=== PATIENT | female | born 1950 | race Caucasian/White ===

== ENCOUNTER 2023-11-21 12:32 | Emergency (ER) | payer MEDICARE, OTHER, SELFPAY ==
--- NOTE | 2023-11-21 12:42 | ED.FEMALEGU ---
HPI - Female Genitourinary General Chief complaint: Urogenital-Female Stated complaint: Uti Symptoms Time Seen by Provider: 11/21/23 12:34 Source: patient Mode of arrival: ambulatory Limitations: no limitations History of Present Illness HPI Narrative: Kellen is a 73-year-old female patient presenting to the clinic today with complaints of possible UTI the started over the past few days. She reports that she has some blood in her urine this morning also noticing some burning with urination and urinary frequency with decreased urine output. Denies any fever or chills. She also would like her ears to be looked at if she is having pain and pressure. Related Data Home Medications Medication Instructions Recorded Confirmed diltiazem HCl 240 mg mg PO 11/21/23 capsule,extended release 24 hr fluticasone propionate 50 intranasal 11/21/23 mcg/actuation nasal spray,suspension latanoprost 0.005 % eye drops drp 11/21/23 losartan 100 tablet 11/21/23 mg-hydrochlorothiazide 25 mg tablet metformin 1,000 mg tablet 1,000 mg PO DAILY 11/21/23 11/21/23 metformin 1,000 mg tablet 500 mg PO HS 11/21/23 11/21/23 rosuvastatin 10 mg tablet mg 11/21/23 semaglutide 1 mg/dose (4 mg/3 mL) mg subcut 11/21/23 subcutaneous pen injector (Ozempic) Allergies Allergy/AdvReac Type Severity Reaction Status Date / Time No Known Allergies Allergy Verified 11/21/23 12:46 Review of Systems Review of Systems: Pertinent positives per HPI. Patient denies any fever, chills, rash, headache, visual changes, dizziness, cough, runny nose, sore throat, shortness of breath, chest pain, palpitations, nausea, vomiting, diarrhea, constipation, abdominal pain. PMFSH Comments At the time of my signature, I reviewed and agree with the nursing past medical, surgical, social, and family history. There is no relevant family history pertinent to the patient complaint. Exam Narrative: General: Well-developed, well nourished, in no apparent distress Head: Normocephalic, atraumatic Eyes: Pupils equally round and reactive to light bilaterally, EOM intact, sclera and conjunctive clear, no discharge, lids normal Ears: TMs intact, congestion, mild bulging, ear canals clear, no drainage, grossly hearing normal. Nose: Nares patent, no discharge, no inflammation, no sinus tenderness. Mouth: Oropharynx without lesions or masses, good dentition, MMM. Neck: Supple, trachea midline, no enlargement of anterior or posterior cervical nodes, no thyroid masses or goiter palpable. Cardio: Regular rate and rhythm, s1 and s2 normal, no murmur appreciated. Resp: Clear to auscultation bilaterally anteriorly and posteriorly, no rhonchi, rales, wheezing or rubs Abdomen: Soft, pliable, bowel sounds present in all quadrants, non-tender to palpation, no organomegly, no CVAT tenderness. Course Course Emergency Course: Portions of this record may have been created with voice recognition software. Level of Care: Express Care Visit Vital Signs Vital signs: Vital Signs Temperature 36.1 C L 11/21/23 12:43 Pulse Rate 78 11/21/23 12:43 Respiratory Rate 16 11/21/23 12:43 Blood Pressure 147/68 H 11/21/23 12:43 Pulse Oximetry 98 11/21/23 12:43 Oxygen Delivery Room Air 11/21/23 12:43 Temperature 36.1 C L 11/21/23 12:43 Pulse Rate 78 11/21/23 12:43 Respiratory Rate 16 11/21/23 12:43 Blood Pressure 147/68 H 11/21/23 12:43 Pulse Oximetry 98 11/21/23 12:43 Oxygen Delivery Room Air 11/21/23 12:43 Vital signs reviewed MDM - Female Genitourinary MDM Narrative Medical decision making narrative: At the time of visit patient is resting comfortably on the exam table. Patient appears to be nontoxic. Labs: UA positive for 1+ leukocyte, 3+ blood, 1+ protein. We will send urine for culture. Plan: I suspect patient has acute cystitis eustachian tube dysfunction. Will send in prescription for ciprofloxacin. Supportive measures wer
[2023-11-21 12:43] VITALS: BP 147/68; PULSE 78; RESP 16; TEMP 36.1; O2SAT 98
[2023-11-21 13:10] LABS: EDUAAPPEAR Cloudy; EDUABILI Negative (Negative); EDUABLOOD 3+ (Negative); EDUACOLOR1 Yellow; EDUAGLUCOSE Negative (Negative); EDUAKETONE Negative (Negative); EDUALEUKO 1+ (Negative); EDUANITRATE Negative (Negative); EDUAPH 7.5; EDUAPROTEIN 1+ (Negative); EDUAUROBILI 0.2
== END 2023-11-21 13:22 | disposition home or self-care (01) ==
PROVIDERS: Emergency Provider Nurse Practitioner Family
DX: N30.01 Acute cystitis with hematuria (principal); H69.93 Unspecified Eustachian tube disorder, bilateral; I10 Essential (primary) hypertension; E11.9 Type 2 diabetes mellitus without complications; Z79.84 Long term (current) use of oral hypoglycemic drugs
CPT/HCPCS: 81003; 87077; 87086; 87088; 87186; 99203; G0463